=== PATIENT | female | born 1965 | race Caucasian/White ===

== ENCOUNTER 2024-09-05 14:00 | Outpatient (CLI) | payer BC, SELFPAY | END 2024-09-05 14:01 | disposition home or self-care (01) | LOC: NFLDREF 09-11 02:58 | PROVIDERS: PCP Physician Assistant Medical; Referring Provider Physician Assistant Medical; Visit Provider Physician Assistant Medical | DX: R03.0 Elevated blood-pressure reading, without diagnosis of hypertension (principal); R53.83 Other fatigue; R00.2 Palpitations; R06.02 Shortness of breath | CPT/HCPCS: 80053; 80061; 82306; 82607; 82728; 84443 ==

== ENCOUNTER 2024-09-13 09:40 | Outpatient (CLI) | payer BC, SELFPAY | END 2024-09-13 09:41 | disposition home or self-care (01) | LOC: RAD 09:42 | PROVIDERS: PCP Physician Assistant Medical; Visit Provider Physician Assistant Medical | DX: R53.83 Other fatigue (principal) | CPT/HCPCS: 93306 ==

== ENCOUNTER 2025-01-29 16:51 | Outpatient (CLI) | payer BC, SELFPAY | END 2025-01-29 16:52 | disposition home or self-care (01) | LOC: NFLDREF 02-03 01:37 | PROVIDERS: PCP Physician Assistant Medical; Referring Provider Physician Assistant Medical; Visit Provider Physician Assistant | DX: R35.0 Frequency of micturition (principal) | CPT/HCPCS: 87086 ==

== ENCOUNTER 2025-07-20 09:16 | Outpatient (CLI) | payer BC, SELFPAY | END 2025-07-20 09:17 | disposition home or self-care (01) | LOC: NFLDREF 07-25 07:41 | PROVIDERS: PCP Physician Assistant Medical; Referring Provider Physician Assistant Medical; Visit Provider Nurse Practitioner Family | DX: B37.9 Candidiasis, unspecified (principal) | CPT/HCPCS: 87086 ==

== ENCOUNTER 2025-07-28 16:45 | Outpatient (CLI) | payer BC, SELFPAY | END 2025-07-28 16:46 | disposition home or self-care (01) | LOC: NFLDREF 08-02 21:20 | PROVIDERS: PCP Physician Assistant Medical; Referring Provider Physician Assistant Medical; Visit Provider Family Medicine | DX: N89.8 Other specified noninflammatory disorders of vagina (principal) | CPT/HCPCS: 87086 ==